=== PATIENT | female | born 2000 | race Caucasian/White ===

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

== ENCOUNTER 2020-05-25 20:05 | Emergency (ER) | payer OTHER ==
[~2020-05-25 20:05] MED LIST: OMNICEF 300 MG300 MG PO; PYRIDIUM200 MG PO; ZOFRAN ODT 4 MG4 MG PO
== END 2020-05-25 21:50 | disposition left against medical advice (07) ==
LOC: ER1 20:05
DX: J02.9 Acute pharyngitis, unspecified (principal); R05 Cough; Z53.21 Procedure and treatment not carried out due to patient leaving prior to being seen by health care provider